=== PATIENT | female | born 1995 | race Caucasian/White ===

== ENCOUNTER 2023-01-23 14:30 | Outpatient (CLI) | payer OTHER, BC, SELFPAY ==
[2023-01-23 23:51] LABS: Chlamydia DNA Amplified* NOT DETECTED (No Detected); GC DNA Amplified* NOT DETECTED (No Detected)
== END 2023-01-23 14:31 | disposition home or self-care (01) ==
LOC: LKVREF 14:30
PROVIDERS: Visit Provider Physician Assistant Medical
DX: Z00.00 Encounter for general adult medical examination without abnormal findings (principal); Z11.3 Encounter for screening for infections with a predominantly sexual mode of transmission
CPT/HCPCS: 0353U

== ENCOUNTER 2024-01-15 09:46 | Outpatient (CLI) | payer BC, SELFPAY | END 2024-01-15 09:47 | disposition home or self-care (01) | LOC: NFLDREF 01-17 07:55 | PROVIDERS: Visit Provider Family Medicine | DX: N39.0 Urinary tract infection, site not specified (principal) | CPT/HCPCS: 87086 ==

== ENCOUNTER 2024-09-30 13:55 | Outpatient (CLI) | payer BC, SELFPAY ==
--- NOTE | 2024-09-30 14:00 | CRLHL7_ITS ---
For Patients: As a result of the Century Cures Act, medical imaging exams and procedure reports are released immediately into your electronic medical record. You may view this report before your referring provider. If you have questions, please contact your health care provider. INDICATION: Check viability and dates TECHNIQUE: Transabdominal scanning was performed. COMPARISON: None FINDINGS: There is a living IUP with gestational age of 10 weeks by LMP and 10 weeks 3 days by today`s crown-rump length. EDC based on today`s crown-rump length is 04/25/2025. The embryonic heart rate is measured at 165 beats per minute. The placenta is not yet formed. A 1.8 x 1.7 x 1.5 cm subchorionic hemorrhage is noted. The right ovary is not visualized. The left ovary is normal, measuring 3.3 x 2.9 x 1.9 cm. No adnexal mass or free fluid is apparent. IMPRESSION: 1. Living IUP with gestational age of 10 weeks 3 days by today`s crown-rump length and EDC of 04/25/2025 2. 1.8 x 1.7 x 1.5 cm subchorionic hemorrhage. Dictated by Reinaldo Gardner MD @ 10/03/2024 7:07:09 AM (Electronically Signed)
== END 2024-09-30 13:56 | disposition home or self-care (01) ==
LOC: US 13:56
PROVIDERS: PCP Physician Assistant Medical; Visit Provider Registered Nurse
DX: Z34.91 Encounter for supervision of normal pregnancy, unspecified, first trimester (principal); O20.9 Hemorrhage in early pregnancy, unspecified; Z3A.10 10 weeks gestation of pregnancy
CPT/HCPCS: 76801; 86703; 86706; 86803; 86850; 86900; 86901; 87086; 87340; 87491; 87591

== ENCOUNTER 2024-09-30 15:02 | Outpatient (CLI) | payer BC, SELFPAY ==
[2024-09-30 21:25] LABS: Chlamydia DNA Amplified* NOT DETECTED (No Detected); GC DNA Amplified* NOT DETECTED (No Detected)
== END 2024-09-30 15:03 | disposition home or self-care (01) ==
PROVIDERS: PCP Physician Assistant Medical; Visit Provider Registered Nurse
DX: Z34.90 Encounter for supervision of normal pregnancy, unspecified, unspecified trimester (principal)
CPT/HCPCS: 83021; 86592; 86703; 86704; 86706; 86762; 86787; 86803; 86850; 86900; 86901; 87086; 87340; 87491; 87591

== ENCOUNTER 2024-12-10 12:43 | Outpatient (CLI) | payer OTHER, SELFPAY | END 2024-12-10 12:44 | disposition home or self-care (01) | LOC: US 12:43 | PROVIDERS: PCP Physician Assistant Medical; Visit Provider Midwife | DX: O99.342 Other mental disorders complicating pregnancy, second trimester (principal); F41.9 Anxiety disorder, unspecified; Z3A.20 20 weeks gestation of pregnancy | CPT/HCPCS: 76805 ==

== ENCOUNTER 2025-02-04 08:40 | Outpatient (CLI) | payer OTHER, SELFPAY | END 2025-02-04 08:41 | disposition home or self-care (01) | LOC: NFLDREF 02-09 05:50 | PROVIDERS: PCP Physician Assistant Medical; Referring Provider Physician Assistant Medical; Visit Provider Advanced Practice Midwife | DX: Z34.83 Encounter for supervision of other normal pregnancy, third trimester (principal) | CPT/HCPCS: 86592 ==

== ENCOUNTER 2025-02-11 08:27 | Outpatient (CLI) | payer OTHER, SELFPAY | END 2025-02-11 08:28 | disposition home or self-care (01) | LOC: NFLDREF 02-15 18:53 | PROVIDERS: PCP Physician Assistant Medical; Referring Provider Physician Assistant Medical; Visit Provider Advanced Practice Midwife | DX: O99.810 Abnormal glucose complicating pregnancy (principal); Z3A.28 28 weeks gestation of pregnancy | CPT/HCPCS: 82951; 82952 ==

== ENCOUNTER 2025-03-30 15:03 | Outpatient (CLI) | payer OTHER, SELFPAY ==
[2025-03-31 18:38] LABS: Strep B DNA Probe Negative (Negative)
[2025-03-31 22:30] LABS: Strep B Susceptibility Needed? No
== END 2025-03-30 15:04 | disposition home or self-care (01) ==
LOC: NFLDREF 15:03
PROVIDERS: PCP Physician Assistant Medical; Visit Provider Advanced Practice Midwife
DX: Z34.83 Encounter for supervision of other normal pregnancy, third trimester (principal)
CPT/HCPCS: 87081; 87653

== ENCOUNTER 2025-04-20 20:19 | Outpatient (CLI) | payer OTHER, SELFPAY ==
[2025-04-20 20:27] VITALS: RESP 18; TEMP 36.7
[2025-04-20 20:28] VITALS: BP 127/71; PULSE 79
--- NOTE | 2025-04-20 21:54 | PC.OBNST ---
NST Note NST Note Start: 04/20/25 20:24 Freq: ONCE Status: Active Protocol: Document 04/20/25 21:52 ALISHA (Rec: 04/20/25 21:54 ALICIASTIVEN [id number]) NST Note 5 Para (# of births) 4 EDC 04/28/25 Gestational Age In 38 Weeks & 6 Days Weeks & Days Patient Presented Contractions/cramping with Complaint(s) of Reactive Yes RN Stiven Velásquez RN Date 04/20/25 Reactive Yes FABRIZIO Morales CNM Date 04/20/25 OB NST charge Yes Complete NST Note Yes via Write Note The provider's electronic signature indicates the NST is reactive/appropriate for gestational age. *Note to provider: If an addendum is required, open the patient's chart and click on the note under the Nurse/Allied Health tab.
== END 2025-04-20 21:14 | disposition home or self-care (01) ==
LOC: OB OUT 20:21 → OB 20:22
PROVIDERS: PCP Physician Assistant Medical; Visit Provider Advanced Practice Midwife
DX: O47.1 False labor at or after 37 completed weeks of gestation (principal); Z3A.38 38 weeks gestation of pregnancy
CPT/HCPCS: 59025; G0463

== ENCOUNTER 2025-04-23 01:15 | Outpatient (CLI) | payer OTHER, SELFPAY ==
[2025-04-23 01:25] VITALS: BP 136/84; PULSE 75
[2025-04-23 01:26] VITALS: BP 131/83; PULSE 75
--- NOTE | 2025-04-29 14:57 | PC.OBNST ---
NST Note NST Note Start: 04/23/25 01:18 Freq: ONCE Status: Discharge Protocol: Document 04/23/25 01:55 CARYN (Rec: 04/23/25 01:56 CARYN Desktop) NST Note 5 Para (# of births) 4 EDC 04/28/25 Gestational Age In 39 Weeks & 2 Days Weeks & Days Patient Presented Decreased movement with Complaint(s) of Reactive Yes Appropriate for Yes Gestational Age RN Pricilla RN Date 04/23/25 Reactive Yes Appropriate for Yes Gestational Age RN Ellis RN Date 04/23/25 OB NST charge Yes Complete NST Note Yes via Write Note The provider's electronic signature indicates the NST is reactive/appropriate for gestational age. *Note to provider: If an addendum is required, open the patient's chart and click on the note under the Nurse/Allied Health tab.
== END 2025-04-23 02:00 | disposition home or self-care (01) ==
LOC: OB OUT 01:15 → OB 01:15
PROVIDERS: PCP Physician Assistant Medical; Visit Provider Midwife
DX: O36.8130 Decreased fetal movements, third trimester, not applicable or unspecified (principal); Z3A.39 39 weeks gestation of pregnancy
CPT/HCPCS: 59025; G0463

== ENCOUNTER 2025-04-26 15:01 | Inpatient (IN) | payer OTHER, SELFPAY ==
[2025-04-26] VITALS (50 sets, daily range): BP systolic 111–142; BP diastolic 56–87; PULSE 14–118; RESP 16; TEMP 36.5–36.8; O2SAT 88–100; BMI 28.5
--- NOTE | 2025-04-26 16:22 | P.LDBA_ITS ---
Subjective History of Present Illness Narrative: Patient is being admitted to Labor and Delivery for elective IOL. She is a 29 year old at 39.5 weeks gestation. Her full history and physical was dictated by Tr Gracia on 04/07/25. Please see this for details. She was seen in clinic today and elected for an IOL today. She presented to L&D and on cervical exam was found to be unchanged from in clinic the previous week (2cm/30%/-2) and endorses feeling only occasional contractions. she is appreciating good movement and denies leaking fluid. We discussed Cytotec vs Pitocin vs AROM for induction. She would like to proceed with Pitocin titration, may consider AROM as labor progresses PRN. She is supported by her . She is planning to get an epidural and was encouraged to ambulate or use the labor warm up circuit until then. Specific Issues/Plans G 5 P 4004 It is another boy! Omar Gipson and Ray H&P Completed 04/07/2025 by BERNADINE Crooks #Anemia in -start PO iron qod 03/18/25 #Failed 1 hr GTT-143 3 hr GTT passed all values #Anxiety and depression. Currently stable on 100 mg sertraline daily. #History of macrosomia. First baby was 9 lb 6 oz. #Possible history of MRSA. Per previous records, it appears she was treated in cleared in 2019. However, patient states she was never told she had MRSA, but simply a staph infection. #Hgb A1C: 5.7 =prediabetes. --reviewed, declined nutrition consult #Varicella nonimmune. Rec. PP vaccine.-reviewed. # Transverse at 34 weeks, RESOLVED Vertex at 36 weeks Flu: 09/30/2024 Covid: Not vaccinated. Recommended. Declined. Tdap: 02/18/25 Mental Health: 03/02/25 Hgb: 03/18/25 GBS: 03/30/2025 OB - Problem Based A/P Additional Plan (1) Encounter for induction of labor: Status: Acute (2) History of macrosomia in infant in prior , currently : Status: Acute (3) depression: Problem details: Patient reports symptoms are most prominent 3-4 months after childbirth. Feeling improved; remains on sertraline 12/25/2021 Status: Acute (4) Anxiety: Status: Acute (5) 39 weeks gestation of : Status: Acute Plan ASSESSMENT:? 29 at 39.5 weeks gestation? complicated by:?anemia, anxiety and depression, hx of macrosomia, prediabetic (A1C 5.7), and varicella nonimmune Labor type: Induced, Pitocin titration for induction ? Category 1 FHR pattern.?? Labor complicated by: IOL, hx precipitous labor? GBS negative? ? PLAN:? 1. Routine intrapartum cares as ordered. Pitocin titration for IOL 2. Monitoring per policy, continuous. 3. Candidate for analgesia of choice.?Planning epidural. ? 4. Patient encouraged to reposition and ambulate to promote physiologic labor and .? 5. Anticipate ? Delivery/Labor/Induction Plan Plan: induction Induction method: per pitocin protocol OB Result Labs Blood Type: O (+) positive Rubella: immune RPR/VDLR: nonreactive GBS Status: negative HBsAG: negative OB Exam Physical Exam Vital signs: Temp Pulse BP Pulse Ox 97.7 F 77 134/74 97 04/26/25 16:01 04/26/25 15:25 04/26/25 15:25 04/26/25 16:03 Narrative: Psychiatric:? Alert and oriented x3? HEENT:? Normocephalic, atraumatic? Neck:? Supple without adenopathy or thyromegaly? Lungs:? Clear to auscultation bilaterally? Heart:? Regular rate and rhythm, no murmur, rub or gallop? Abdomen:? Soft, nontender, and gravid? Extremities:? No edema or erythema? Detailed Labor and Delivery Exam Patient Gravid: yes Dilation (cm): 2 Effacement (%): 30 Cervix position: posterior Consistency: soft Contraction Frequency: occasional Contraction intensity: Mild Fetus (Single) Station: -2 Amniotic Membrane Status: intact Heart Rate Baseline: 140 Monitor Accelerations: Present Monitor Decelerations: None Anime Designer Variability: Moderate (6-25)
[2025-04-26 16:41] LABS: Basophils Absolute Auto 0.01 K/uL (0.00-0.30); Basophils Percent Auto 0.1 % (0.0-3.0); Eosinophils Absolute Auto 0.04 K/uL (0.00-0.50); Eosinophils Percent Auto 0.4 % (0.0-7.0); Hematocrit 32.1 % (33.0-51.0); Hemoglobin* 10.9 gm/dL (12.0-16.0); Immature Granulocytes Abs Auto 0.03 K/uL (0.00-0.30); Immature Granulocytes Pct Auto 0.3 %; Lymphocytes Percent Auto 13.9 % (20-44); Mean Corpuscular HGB Conc 34 gm/dL (32-36); Mean Corpuscular Hemoglobin 31 pg (26-34); Mean Corpuscular Volume 90 fL (80-100); Monocytes Percent Auto 4.3 % (0.0-11.0); Platelet Count* 184 K/uL (140-440); RDW Coefficient of Variation % 15.8 % (11.5-15.5); Red Blood Count 3.55 m/uL (4.00-5.20); White Blood Count* 9.28 K/uL (4.50-11.00)
[2025-04-26 16:45] LABS: Slide Review Reflex No
[2025-04-26] MEDS: OXYTOCIN 30 unit/500 ML in NS 30 UNIT/500 ML BAG IVPB (17:01)
[2025-04-26] MEDS: LACTATED RINGERS 1000 ML 1,000 ML 125 ML IV (17:01)
[2025-04-26] MEDS: LACTATED RINGERS 1000 ML 1,000 ML IV (20:12)
[2025-04-26] MEDS: ROPIVACAINE 0.2% 100 ml 100 ML 12 MG EPIDURAL (21:02)
[2025-04-26] MEDS: BUPIVACAINE 0.25% PF 10 ML 10 ML ML EPIDURAL (21:02)
--- NOTE | 2025-04-26 21:06 | PM.ANBPRC ---
[facility] Medical History Anxiety ?F41.9 - Anxiety disorder, unspecified (ICD-10) depression ?F53.0 - depression (ICD-10) Migraines ?G43.909 - Migraine, unspecified, not intractable, without status migrainosus (ICD-10) Prediabetes ?R73.03 - Prediabetes (ICD-10) Macrosomia ?P08.0 - Exceptionally large baby (ICD-10) Frequent UTI ?N39.0 - Urinary tract infection, site not specified (ICD-10) Normal spontaneous vaginal delivery ?O80 - Encounter for full-term uncomplicated delivery (ICD-10) Family History (Updated 04/07/25 @ 09:08 by Sharon Gracia CNM) Father Bipolar disorder Sister Ovarian cyst Maternal Grandmother Cervical cancer Mother ADHD Paternal Grandfather Seizure disorder Social History Narrative: , 4 kids, no alcohol use or recreational drug use What is your current living situation?: I presently have a place to live Problems where you live: no known problems In the past 12 months, utilities in danger of being shut off: no In past 12 months, lack of transportation kept you from medical appts, meetings, work, or getting things needed for daily living: no In the past 12 mos, have been you worried that your food would run out before you had money to buy more?: never true In the past 12 mos, the food you bought just didn't last and you didn't have money to buy more?: never true Smoking Status: Never smoker How often does anyone, including family, friends and others, physically hurt you: never How often does anyone, including family, friends and others, insult or talk down to you: never How often does anyone, including family, friends and others, threaten you with harm: never How often does anyone, including family, friends and others, scream or curse at you: never Meds Home Medications and Allergies Home Medications ?Medication ?Instructions ?Recorded ?Confirmed ?Type sertraline 100 mg tablet 100 mg PO DAILY #90 tabs 05/20/24 04/26/25 Rx docosahexaenoic acid 200 mg 200 mg PO DAILY 09/30/24 04/26/25 History capsule ( DHA) magnesium 250 mg tablet 250 mg PO QDAY 10/21/24 04/26/25 History ferrous sulfate 325 mg (65 mg 325 mg PO Q OTHER DAY 04/07/25 04/26/25 History iron) tablet Allergies Allergy/AdvReac Type Severity Reaction Status Date / Time No Known Drug Allergies Allergy Verified 04/26/25 10:35 Results Labs Labs: Laboratory Results - last 24 hr 04/26/25 16:25 WBC 9.28 RBC 3.55 L Hgb 10.9 L Hct 32.1 L MCV 90 MCH 31 MCHC 34 RDW Coeff of Jeannie 15.8 H Plt Count 184 Neut % (Auto) 81.0 H Lymph % (Auto) 13.9 L Clinch % (Auto) 4.3 Eos % (Auto) 0.4 Baso % (Auto) 0.1 Neut # (Auto) 7.50 H Lymph # (Auto) 1.30 Clinch # (Auto) 0.40 Eos # (Auto) 0.04 Baso # (Auto) 0.01 Abs Immat Gran (auto) 0.03 Imm/Tot Granulo (auto) 0.3 Vital Signs Vital Signs: Last Vital Signs Temp 97.7 F 04/26/25 16:01 Pulse 89 04/26/25 21:04 Resp 16 04/26/25 18:41 BP 128/77 04/26/25 21:04 Pulse Ox 99 04/26/25 21:03 Weight: 77.836 kg Height: 165.1 cm Anesthesia Procedures Epidural Insertion Patient Location: OB Start Time: 20:10 Stop Time: 21:06 Start Date: 04/26/25 Stop Date: 04/26/25 Reason for Block: procedure for pain Patient Position: sitting Performed By: Grzegorz Trejo Preanesthetic Checklist: IV checked, risks and benefits discussed, monitors and equipment checked, pre-op evaluation, timeout performed and anesthesia consent Prep: chlorhexidine gluconate Monitoring: blood pressure monitoring, continuous pulse oximetry and heart rate Approach: midline Vertebral Space: lumbar (1-5) Epidural Technique: TIERRA saline Needle Type: Tuohy needle Injection Technique: continuous catheter Needle gauge: 17 Needle Length (cm): 10 cm Needle Insertion Depth (cm): 7 Catheter Gauge: 19 Catheter Type: multi-orifice Catheter at skin depth (cm): 13 Test Dose Result: negative (2nd epidural placement), positive (1st epidural placement had positive test dose. Catheter removed. ) and lidocaine 1.5% with epinephrine 1 to 200,000
--- NOTE | 2025-04-26 21:18 | P.OBPN_ITS ---
Subjective Time Seen by Provider: 21:00 Date Seen: 04/26/25 Narrative: Chrissy has continued with Pitocin titration and is currently at 5mU. She was starting to feel somewhat uncomfortable with contractions but still able to talk and not pause with them. She desired an epidural at that time and one was placed. She is feeling comfortable now with that in place. She did request a cervical exam. She was found to be 3cm/70%/-1 station. The cervix was still very posterior behind the head. Encouraged position changes with the RN assistance to encourage optimal position. Blood pressures have been mostly 120-130/70-80. Briefly discussed labs if they are further elevated and what a potential gestational hypertension or preeclampsia diagnosis could change about labor or PP. Objective Vital Signs: Last Vital Signs Temp 98.3 F 04/26/25 21:06 Pulse 69 04/26/25 21:16 Resp 16 04/26/25 18:41 BP 136/85 04/26/25 21:16 Pulse Ox 99 04/26/25 21:18 Pelvic Exam Dilation (cm): 3 Effacement (%): 70 Station: -1 Contractions Monitor mode: External Contraction Frequency: difficult to trace but Q 2-4 min per TOCO and pt report Contraction pattern: Irregular Contraction intensity: Moderate Assessment Assessment: induction ongoing Station: -1 Status: Category l Heart Rate Baseline: 140 Precision Aircraft Structure Assembler Variability: Moderate (6-25) Monitor Accelerations: Present Monitor Decelerations: None Plan Plan: ASSESSMENT:? 29 at 39.5 weeks gestation? complicated by:?anemia, anxiety and depression, hx of macrosomia, prediabetic (A1C 5.7), and varicella nonimmune Labor type: Induced, Pitocin titration for induction. Early labor. ? Category 1 FHR pattern.?? Labor complicated by: IOL, hx precipitous labor? GBS negative? ? PLAN:? 1. Routine intrapartum cares as ordered. Continue with Pitocin titration for IOL 2. Monitoring per policy, continuous. 3. Candidate for analgesia of choice.?Effective epidural in place. ? 4. Patient encouraged to reposition with RN assistance to promote physiologic labor and .? 5. Anticipate
[2025-04-27] VITALS (20 sets, daily range): BP systolic 109–138; BP diastolic 70–84; PULSE 68–153; RESP 16–18; TEMP 36.4–36.9; O2SAT 90–100
--- NOTE | 2025-04-27 02:02 | W.PM.VAGDE_ITS ---
OB Procedure Vag Delivery Mother Details Mother Details: The patient is a 29 year-old, 5, Para 4, admitted on 04/26/25 at 39.6 Days gestation. : 5 Para: 5 Weeks Gestation: 39.6 Admission Date: 04/26/25 Additional Details Amniotic Membrane Status: SROM (fore bag ruptured shortly after ) Amniotic Membrane Rupture Date: 04/26/25 Amniotic Membrane Rupture Time: 23:45 Amniotic Membrane Fluid Description: Clear Analgesia/Anesthesia Type: Epidural Waterbirth: No Pitcoin: Yes Intrapartal Events: Labor Induction Induction Method: per pitocin protocol Labor Onset: 22:25 Complete: 00:53 Pushin:56 Heart: heart tones during second stage were category 2. They were difficult to trace. FHR heard mostly 120's with increases heard and decreases heard with contractions to the 80's. Delivery Details Delivery Date: 04/27/25 Delivery Time: 01:08 Route of delivery: Gender: Male Viability: Alive; Heart Rate Present Position at Delivery: OA Delivery Details: Patient was admitted for elective IOL and progressed normally with Pitocin titration. SROM noted at 2345 with clear fluid. a fore bag was AROM at 0006. Patient was complete at 0053 and pushing at 0056. of a viable male at 0108 in the bed. Vertex delivered OA. No nuchal cord or shoulder. Body delivered easily and without incident. Infant passed to mothers abdomen with a vigorous cry. Cord was clamped and cut at > 5 minutes. APGARS were 8 at one minute and 7 at five minutes respectively. Mouth was bulb suctioned. Intact placenta with a 3 vessel cord delivered spontaneously at 0116. There as a small strand of trailing membranes that were slowly teased out. [place] to be intact with final delivery of the trailing memebranes. Fundus firm. Intact perineium identified and no repair was required. QBL 400 cc. Mother and baby stable; mother plans to breastfeed. weight pending. 1 Minute Interval Total Score: 8 5 Minute Interval Total Score: 9 Additional Details Shoulder Dystocia: No Placenta Delivery Time: 01:16 Placental Delivery Description: Spontaneous Procedure Done: Global Blood Loss: 400 Laceration: None Episiotomy Description: None Blood Loss Measurement Type: QBL Bakri Used: No Sponge/Need Count Correct: Yes Cord Vessel Description: 3 Vessels Event Summary Status: Mother and were stable after delivery. Disposition: floor
--- NOTE | 2025-04-27 10:33 | PM.ANPOST ---
Post Anesthesia Note Post Anesthesia Note Patient seen: Inpatient Respiratory Status: adequate Cardiovascular Status: adequate Mental Status: baseline Pain: adequate Temp: baseline Anesthetic awareness: N/A Complications: none Follow care: none
[2025-04-28 02:38] VITALS: BP 132/90; PULSE 95; RESP 16; TEMP 36.7; O2SAT 97
[2025-04-28 02:55] VITALS: BP 144/83
[2025-04-28 03:51] LABS: Hematocrit 31.2 % (33.0-51.0); Hemoglobin* 10.3 gm/dL (12.0-16.0); Mean Corpuscular HGB Conc 33 gm/dL (32-36); Mean Corpuscular Hemoglobin 31 pg (26-34); Mean Corpuscular Volume 94 fL (80-100); Platelet Count* 177 K/uL (140-440); Red Blood Count 3.33 m/uL (4.00-5.20); White Blood Count* 8.48 K/uL (4.50-11.00)
[2025-04-28 03:52] LABS: Slide Review Reflex No
--- NOTE | 2025-04-28 03:58 | PM.EN ---
Chart Event Note Chart Event Note: RN informed me of 2nd elevated BP sustained with repeat. Mild range. No ESCALANTE, vision changes or RuQ pain. Pre-labs ordered, but no PCR ordered due to bleeding affecting accuracy.
[2025-04-28 04:06] LABS: Alanine Aminotransferase* 21 U/L (4-35); Aspartate Amino Transferase* 33 U/L (12-35); Blood Urea Nitrogen* 7 mg/dL (5-24); Creatinine* 0.5 mg/dL (0.5-1.5); Estimated Glomerular Filt Rate 129 ml/min
--- NOTE | 2025-04-28 07:35 | PM.OBPNVD1 ---
OB - PN:Subj Subjective Date Seen: 04/28/25 Narrative: Chrissy is a 29 y.o. G 5 P 5 who was admitted to L & D for elective IOL. ?She had a NVD that was uncomplicated. The patient feels well. ?The pain is well controlled with current medications. ?She has no new complaints. ?She is breast feeding and reports things are going well. the patient has done well.? Vitals have been stable with the exception of mild elevated BP. She has now met criteria for GHTN. Will consider medications if she continues to have elevated BP's this morning. Labs were WNL.? She has remained afebrile.? Has a good appetite, is tolerating a general diet. ?She is voiding without difficulty.? She is passing gas and has not had a bowel movement.? She is ambulating and denies any dizziness.? Has small amount of rubra lochia. Problems: GHTN OB - PN: Obj Exam Physical Exam: Vital signs: Temp Pulse Resp BP Pulse Ox O2 Del Method 98.1 F 95 16 144/83 H 97 Room Air 04/28/25 02:38 04/28/25 02:38 04/28/25 02:38 04/28/25 02:55 04/28/25 02:38 04/28/25 02:38 Narrative: GENERAL APPEARANCE:? normal affect, alert, no distress MOOD:? appropriate CHEST:? clear to auscultation HEART:? regular rate and rhythm ABDOMEN:? soft, non-tender the uterine fundus is At Umbilicus, Midline and is appropriate for the stage of recovery. PERINEUM:? mild edema of the perineum. EXTREMITIES:? normal and no edema OB - PN: Obj Data Labs Labs: Laboratory Results - last 24 hr 04/28/25 03:45 WBC 8.48 RBC 3.33 L Hgb 10.3 L Hct 31.2 L MCV 94 MCH 31 MCHC 33 Plt Count 177 BUN 7 Creatinine 0.5 Estimated Creat Clear 146.70 Estimated GFR 129 AST 33 ALT 21 OB - PN: A/P Delivery Assessment and Plan (1) care and examination immediately after delivery: Status: Acute (2) Anxiety: Status: Acute (3) Gestational hypertension: Status: Acute (4) History of depression: Status: Acute (5) Lactating mother: Status: Acute Plan day: 1 Plan: routine care Comments: , may see if needed? Hgb 10.3. ? GHTN diagnosed by elevated BP greater than 4 hours apart? Labs WNL Continue to monitor BP, Will initiate medication with any additional elevated mild range BP's
[2025-04-28] MEDS: DOCUSATE SODIUM 100 MG CAPSULE PO (08:13)
[2025-04-28] MEDS: IBUPROFEN 600 MG TABLET PO ×2 (08:13→20:37)
[2025-04-28 08:25] VITALS: BP 114/77; PULSE 83; RESP 12; TEMP 36.6; O2SAT 97
[2025-04-28 12:09] VITALS: BP 123/78; PULSE 100; RESP 12; TEMP 36.6; O2SAT 97
[2025-04-28] MEDS: SERTRALINE 100 MG TABLET PO (12:11)
[2025-04-28 16:00] VITALS: BP 136/88; PULSE 99; RESP 20; TEMP 36.8; O2SAT 97
[2025-04-28 18:01] LABS: Rapid Plasma Reagin (RPR) Non Reactive (Non Reactive)
[2025-04-28 20:15] VITALS: BP 137/90; PULSE 111; RESP 20; TEMP 36.6; O2SAT 98
[2025-04-29] VITALS: BP 122/74; PULSE 84; RESP 16; TEMP 36.6; O2SAT 95
[2025-04-29 04:45] VITALS: BP 118/81; PULSE 77; RESP 20; O2SAT 98
--- NOTE | 2025-04-29 07:39 | P.DS_ITS ---
DS: Providers Provider Date Seen: 04/29/25 Date of admission: 04/26/25 15:01 Primary care physician: Abbie De La Cruz PA-C Admitting Clinician: Savanna Coelho CNM Attending Physician on discharge: Savanna Coelho CNM Date of Discharge: 04/29/25 DS: Diagnosis Discharge Diagnosis (1) Lactating mother: Status: Acute (2) care following vaginal delivery: Status: Acute (3) History of depression: Status: Acute (4) Gestational hypertension: Status: Acute (5) Anxiety: Status: Acute Exam Narrative: Exam Narrative: GENERAL APPEARANCE:? normal affect, alert, no distress? MOOD:? appropriate? CHEST:? clear to auscultation and percussion? HEART:? regular rate and rhythm? ABDOMEN:? soft, non-tender the uterine fundus is U/U and is appropriate for the stage of recovery.? PERINEUM:? mild edema of the perineum, there is a intact perineum that is healing well.? EXTREMITIES:? normal and no edema? Const: Vital Signs, click to edit/add: Vital Signs - 24 hr 04/28/25 08:25 04/28/25 12:09 04/28/25 16:00 Temperature 97.8 F 98 F 98.3 F Pulse Rate [Pulse Oximeter] 83 100 99 Respiratory Rate 12 12 20 Blood Pressure [Le ft Arm] 114/77 123/78 136/88 Pulse Oximetry 97 97 97 Oxygen Delivery Me thod Room Air Room Air Room Air 04/28/25 20:15 04/29/25 00:00 04/29/25 04:45 Temperature 97.9 F 97.8 F Pulse Rate [Pulse Oximeter] 111 H 84 77 Respiratory Rate 20 16 20 Blood Pressure [Le ft Arm] 137/90 H 122/74 118/81 Pulse Oximetry 98 95 98 Oxygen Delivery Me thod Room Air Room Air Room Air Documenting provider has reviewed patient's vital signs: yes OB - DS: Summary Hospital Course Hospital Course: Akila is a 29 year old G 5 P 5 at 39.6 weeks gestation that was admitted to the Center on 04/26/25 for elective IOL. She had an uncomplicated vaginal delivery. She delivered a viable male . She is breast feeding and denies concerns with how it is going. the patient has done well. Akila is a 29 y.o. G 5 P 5 who was admitted to L & D for elective IOL. ?She had a NVD that was uncomplicated. She was diagnosed with gestational hypertension after delivery and her blood pressures have been stable since. The patient feels well. ?The pain is well controlled with current medications. ?She has no new complaints. ?She is breast feeding and reports things are going well. the patient has done well.? Vitals have been stable.? She has remained afebrile.? Has a good appetite, is tolerating a general diet. ?She is voiding without difficulty.? She is passing gas and has had a bowel movement.? She is ambulating and denies any dizziness.? Has small amount of rubra lochia. Her partner is planning vasectomy for prevention, encouraged condoms until testing is complete. She declines the need for Colace or ibuprofen prescriptions. Will set her up with a blood pressure cuff for home monitoring. Peripartum Data delivery method: Vaginal Laceration description: None Episiotomy description: None complications: other (gestational hypertension ) [place] Gender: Male Discharge Plan: Home Status at Discharge Functional status at discharge: independent ambulation Overall status at discharge: patient is progressing back to baseline Time Spent with Patient Time attestation: Total time spent providing and/or coordinating discharge services: Discharge Plan Discharge Disposition: Home, Self-Care Date of Admission: 04/26/25 15:01 Attending Provider on Discharge: Savanna Coelho Primary Care Provider: Abbie De La Cruz Condition: Stable Anticipated Discharge Date/Time: 04/29/25 10:00 Discharge Medications: Continued DHA 200 mg capsule 200 mg PO DAILY magnesium 250 mg tablet 250 mg PO QDAY ferrous sulfate 325 mg (65 mg iron) tablet 325 mg PO Q OTHER DAY sertraline 100 mg tablet 100 mg PO DAILY Qty: 90 3RF Discharge Orders: Discharge Order (Routine); Ordered 04/29/25 Ordered By: Savanna Coelho Patient Education: OB Vaginal/Breast Feeding Additional Instructions: Discharge instructions were reviewed with the patient including signs and symptoms of infection and home going medications.? Lifting Restrictions: 20 pounds for 6? weeks? ?? Do not drive while taking narcotic pain meds.? Off Work or School for 6 weeks.? ?? Symptoms to report to doctor:? -Bleeding that saturates more than one pad per hour? -Passing clots larger than the size of a golf ball? -Pain not relieved by prescribed medication? -Fever above 100.4 degrees Fahrenheit? -A foul vaginal odor? -Difficulty in emotions, mood and functions? -Thoughts of hurting yourself and/or ? -Painful, reddened area in your breast? -Any drainage, redness or tenderness in your IV/epidural site? -Severe headache that doesn't improve after taking medications? -Changes in vision, including temporary loss of vision, blurred vision, and/or light sensitivity? -Upper abdominal pain (usually under ribs on the right side)? -Decrease in urination or painful, frequent urinating? -Chest pain? -Shortness of breath? -Tenderness or pain with redness and/swelling in the calf(s) of your leg? ?? Blood pressure check in 3-5 days. Virtual or in person nurse visit. Follow Up in clinic in 2 and 6 weeks.? ?? consultation services are available to all mothers and babies for the first year after delivery.? To make an appointment, please call [phone].? Activity Level: Activity as Tolerated Discharge Diet: Regular Follow Up Appointments: [facility] [Provider Group] Forms: MyHealth Info Instructions
[2025-04-29 09:11] VITALS: BP 124/76; PULSE 104; RESP 16; TEMP 36.6; O2SAT 97
== END 2025-04-29 10:45 | disposition home or self-care (01) | DRG 807 ==
PROVIDERS: Midwife; Admitting Provider Advanced Practice Midwife; PCP Physician Assistant Medical; Visit Provider Advanced Practice Midwife
DX: O99.892 Other specified diseases and conditions complicating childbirth (principal); Z37.0 Single live birth; R73.03 Prediabetes; Z28.39 Other underimmunization status; O13.5 Gestational [pregnancy-induced] hypertension without significant proteinuria, complicating the puerperium; O99.02 Anemia complicating childbirth; D64.9 Anemia, unspecified; O99.344 Other mental disorders complicating childbirth; F41.9 Anxiety disorder, unspecified; F32.A Depression, unspecified; Z3A.39 39 weeks gestation of pregnancy
CPT/HCPCS: 01967; 36415; 82565; 82570; 84156; 84450; 84460; 84520; 85018; 85025; 85027; 86592; 86850; 86900; 86901; 94761; A9270; J0665; J2795; J7120